=== PATIENT | female | born 1970 | race Caucasian/White ===

== ENCOUNTER → 2022-09-21 | Outpatient (CLI) | payer OTHER ==
[~2022-09-21] MED LIST: ACET500 PO; CENTRUM SILVER1 EAC2 PO; CODACE30; CYCL10 PO; DEPAKOTE; DIVA250EC PO; ERGO400; FAMO20 PO; HYDACE10B PO; HYDACE5 PO; NAPR500 PO; Norco 10-325 T1 EACH PO; OXYACE5T PO; PANT40 PO; PROACE100 PO; PROC10 PO; PROM25; PROM25 PO; SIMV40 PO; SOMA350 MG; SUMA6I SC; ZOLM2.5; ZOLM2.5 PO; maxalt
== END | disposition home or self-care (01) ==
LOC: LAB SHORT 12:54
DX: R30.0 Dysuria (principal)
CPT/HCPCS: 87086

== ENCOUNTER → 2022-10-16 | Outpatient (CLI) | payer OTHER | END | disposition home or self-care (01) | LOC: LAB 16:50 → LAB SHORT 16:50 | DX: R30.0 Dysuria (principal) | CPT/HCPCS: 87086 ==